=== PATIENT | male | born 1995 | race Asian ===

== ENCOUNTER 2018-11-16 15:54 | Emergency (ER) | payer SELFPAY ==
[~2018-11-16] VITALS: Ht 180.3 cm; Wt 116.6 kg
[2018-11-16 16:02] VITALS: BP 144/80; Ht 180.3 cm; Wt 116.6 kg
== END 2018-11-16 16:36 | disposition home or self-care (01) ==
LOC: ED 15:54
DX: S60.111A Contusion of right thumb with damage to nail, initial encounter (principal); W22.8XXA Striking against or struck by other objects, initial encounter; Y93.89 Activity, other specified; Y92.89 Other specified places as the place of occurrence of the external cause; Y99.8 Other external cause status